=== PATIENT | female | born 1975 ===

== ENCOUNTER 2021-11-08 10:11 | Emergency (ER) | payer OTHER ==
[~2021-11-08] VITALS: Ht 152.4 cm; Wt 67.1 kg
== END 2021-11-08 15:08 | disposition home or self-care (01) ==
LOC: ER 10:11
DX: S93.401A Sprain of unspecified ligament of right ankle, initial encounter (principal); W18.30XA Fall on same level, unspecified, initial encounter; Y93.9 Activity, unspecified; Y92.89 Other specified places as the place of occurrence of the external cause; Y99.9 Unspecified external cause status